=== PATIENT | female | born 1955 | race Two or more races ===

== ENCOUNTER 2017-08-18 20:36 | Emergency (ER) | payer SELFPAY ==
[~2017-08-18] VITALS: Ht 147.3 cm; Wt 83.9 kg
[2017-08-18 22:16] LABS: Basophils # (auto) 0 uL; Basophils % (auto) 0.5 % (0.0-2.0); Eosinophils # (auto) 0.2 uL; Eosinophils % (auto) 1.6 % (0.0-7.0); Lymphocytes # (auto) 1.6 uL; Lymphocytes % (auto) 16.5 % (10.0-50.0); Mean Corpuscular Hemoglobin 31.6 pg (28.0-32.0); Mean Corpuscular Hgb Conc. 34.1 g/dL (32.0-36.0); Mean Corpuscular Volume 92.5 fL (80.0-100.0); Monocytes # (auto) 0.6 uL; Monocytes % (auto) 6.6 % (0.0-12.0); Neutrophils # (auto) 7.2 uL; Neutrophils % (auto) 74.8 % (37.0-80.0); Nucleated Red Blood Cells % 0.1 %; Platelet Count (auto) 325 10^3/uL (140-450); Red Blood Cells 4.43 10^6/uL (4.0-5.20); Red Cell Distribution Width 13.9 % (11.8-14.3); White Blood Cell 9.6 10^3/uL (4.4-10.8)
[2017-08-18 22:33] LABS: Albumin 3.8 g/dL (3.4-5.0); Calcium 8.8 mg/dL (8.5-10.1); Potassium 3.8 mmol/L (3.5-5.1)
[2017-08-18 22:35] LABS: BUN/Creatinine Ratio 25.4
[2017-08-18 22:37] LABS: Bilirubin, Total 0.8 mg/dL (0.2-1.0); Total Protein 7.8 g/dL (6.4-8.2)
[2017-08-19] MEDS ORDERED: ALBUTEROL SULF 2.5 MG/0.5ML(0.5%) NEB SOLN NEB ONE (00:30)
[2017-08-19] MEDS ORDERED: methylPREDNISolone SOD SUCC 125 MG/2 ML VL IV ONE (00:30)
[2017-08-19] MEDS ORDERED: IPRATROPIUM BROM 0.5 MG/2.5ML INH SOL NEB ONE (00:30)
[2017-08-19 03:20] VITALS: BP 135/75
[2017-08-19] MEDS ORDERED: OSELTAMIVIR 75 MG CAP PO ONE (03:30)
== END 2017-08-19 03:48 | disposition home or self-care (01) ==
LOC: ER 20:36
DX: J11.1 Influenza due to unidentified influenza virus with other respiratory manifestations (principal); F17.210 Nicotine dependence, cigarettes, uncomplicated; J45.909 Unspecified asthma, uncomplicated
CPT/HCPCS: 36415; 36600; 71046; 80053; 82805; 85025; 87804; 93005; 94761; 96374; 99285; J2930

== ENCOUNTER 2020-03-24 21:29 | Emergency (ER) | payer OTHER ==
[~2020-03-24] VITALS: Ht 147.3 cm; Wt 81.6 kg
[2020-03-25 00:46] LABS: Basophils # (auto) 0 10 ^3/uL (0-0.2); Basophils % (auto) 0.7 % (0.0-2.0); Eosinophils # (auto) 0.2 10 ^3/uL (0-0.8); Eosinophils % (auto) 3.2 % (0.0-7.0); Hematocrit 42.6 % (36.0-46.0); Hemoglobin 14.6 g/dL (12.2-16.2); Lymphocytes % (auto) 35.9 % (10.0-50.0); Mean Corpuscular Hemoglobin 31.6 pg (28.0-32.0); Mean Corpuscular Hgb Conc. 34.2 g/dL (32.0-36.0); Mean Corpuscular Volume 92.5 fL (80.0-100.0); Monocytes # (auto) 0.4 10 ^3/uL (0-1.3); Monocytes % (auto) 7.4 % (0.0-12.0); Neutrophils % (auto) 52.8 % (37.0-80.0); Nucleated Red Blood Cells % 0.1 %; Platelet Count (auto) 295 10^3/uL (140-450); Red Cell Distribution Width 13.9 % (11.8-14.3); White Blood Cell 5.6 10^3/uL (4.4-10.8)
[2020-03-25 01:01] LABS: INR 0.94 (0.9-1.15)
[2020-03-25 01:06] LABS: Albumin 3.5 g/dL (3.4-5.0); Anion Gap 7 (5-15); BUN/Creatinine Ratio 23.4; Blood Urea Nitrogen 15 mg/dL (7-18); Carbon Dioxide 24 mmol/L (21-32); Chloride 111 mmol/L (98-107); GFR African American 119 mL/min; GFR Non-African American 98 mL/min; Glucose 90 mg/dL (74-106); Lipase 301 U/L (73-393); Magnesium 2.2 mg/dL (1.6-2.6); Potassium 3.6 mmol/L (3.5-5.1); Sodium 142 mmol/L (136-145)
[2020-03-25 01:12] LABS: Alanine Aminotransferase 38 U/L (13-56); Alkaline Phosphatase 105 U/L (45-117); Aspartate Aminotransferase 19 U/L (15-37); Bilirubin, Total 0.5 mg/dL (0.2-1.0); Creatine Kinase IFCC 91 U/L (26-192); Total Protein 7.4 g/dL (6.4-8.2)
[2020-03-25 01:54] LABS: CRP High Sensitivity 0.22 mg/dL (< 0.3)
[2020-03-25] MEDS ORDERED: IOHEXOL 350 MG/ML 100ML IJ ONE (02:40)
[2020-03-25 03:49] VITALS: BP 140/82
== END 2020-03-25 05:14 | disposition home or self-care (01) ==
LOC: ER 21:29
DX: S44.92XA Injury of unspecified nerve at shoulder and upper arm level, left arm, initial encounter (principal); F17.210 Nicotine dependence, cigarettes, uncomplicated; W19.XXXA Unspecified fall, initial encounter; Y93.89 Activity, other specified; Y92.89 Other specified places as the place of occurrence of the external cause; Y99.8 Other external cause status
CPT/HCPCS: 36415; 71045; 71275; 72125; 80053; 82550; 83690; 83735; 84484; 85025; 85379; 85610; 86141; 93005; 99285; Q9967